=== PATIENT | female | born 1960 | race Caucasian/White ===

== ENCOUNTER 2018-05-29 10:00 | Emergency (ER) | payer OTHER ==
[~2018-05-29] VITALS: Ht 172.7 cm; Wt 96.6 kg
[2018-05-29] MEDS ORDERED: LISINOPRIL10 MG PO (10:14)
[2018-05-29] MEDS ORDERED: NATURE-THROID130 MG PO (10:15)
[2018-05-29] MEDS ORDERED: LEXAPRO20 MG PO (10:15)
[2018-05-29] MEDS ORDERED: TRILEPTAL300 MG PO (10:15)
[2018-05-29] MEDS ORDERED: TRAZODONE 150150 M1 PO (10:15)
[2018-05-29] MEDS ORDERED: HYDROCODONE-AP1 EAC6 PO (11:42)
[2018-05-29 12:01] VITALS: BP 143/78
== END 2018-05-29 12:01 | disposition home or self-care (01) ==
LOC: M.ERS 10:00
DX: S52.124A Nondisplaced fracture of head of right radius, initial encounter for closed fracture (principal); I10 Essential (primary) hypertension; F31.9 Bipolar disorder, unspecified; E03.9 Hypothyroidism, unspecified; Z88.6 Allergy status to analgesic agent; Z90.710 Acquired absence of both cervix and uterus; Z90.49 Acquired absence of other specified parts of digestive tract; W10.8XXA Fall (on) (from) other stairs and steps, initial encounter; Y93.89 Activity, other specified; Y92.89 Other specified places as the place of occurrence of the external cause; Y99.8 Other external cause status